=== PATIENT | female | born 1990 | race American Indian/Alaskan Native ===

== ENCOUNTER 2017-06-17 12:06 | Day surgery (SDC) | payer OTHER ==
[~2017-06-17 12:06] MED LIST: WATER FOR IRRIG STERILE IR ONE
[2017-06-17] MEDS ORDERED: ZOFRAN IV PRN (12:48)
[2017-06-17] MEDS ORDERED: PERCOCET 5/325 PO PRN (12:48)
[2017-06-17] MEDS ORDERED: DILAUDID IV PRN (12:48)
--- NOTE | 2017-06-17 12:48 | Anesthesia Consultation ---
Anesthesia Consult and Med Hx Date of service: 06/17/17 - Airway Anesthetic Teeth Evaluation: Good ROM Head & Neck: Adequate Mental/Hyoid Distance: Adequate Mallampati Class: Class II Intubation Access Assessment: Good - Pulmonary Exam CTA: Yes - Cardiac Exam Cardiac Exam: RRR Anesthetic Concerns: Peoplesoft Hcm Consultant tooth in rear, temporary crown - Pulmonary Hx Smoking: No Hx Asthma: Yes ( CHILD ONLY) SOB: No Hx Sleep Apnea: No (NAN PRE SCREEN NEGATIVE) - Cardiovascular System Hx Hypertension: No - Central Nervous System Hx Psychiatric Problems: No (DENIES) - Gastrointestinal Hx Gastroesophageal Reflux Disease: Yes (Diet related) - Endocrine Hx Renal Disease: No Hx Non-Insulin Dependent Diabetes: No - Hematic Hx Anemia: Yes ( CHILD ONLY) Hx Sickle Cell Disease: No - Other Systems Hx Alcohol Use: Yes (OCCASIONAL ) Hx Substance Use: Yes (LAST USE 1 WEEK AGO) Hx Cancer: No Hx Obesity: No
--- NOTE | 2017-06-17 12:48 | Anesthesia Day of Surgery ---
Anesthesia Day of Surgery - Day of Surgery Patient Examined: Yes Patient H&P Reviewed: Yes Patient is NPO: Yes
[2017-06-17] MEDS ORDERED: ANCEF/STERILE WATER 2 GM/20 ML IV NR (13:00)
[2017-06-17] MEDS ORDERED: VERSED IV NR (13:00)
[2017-06-17] MEDS ORDERED: LACTATED RINGERS 1,000 ML IV SCH (13:00)
[2017-06-17] MEDS ORDERED: PEPCID PO NR (13:00)
[2017-06-17] MEDS ORDERED: NACL BACTERIOSTATIC INFILTRATI ONE (13:15)
[2017-06-17] MEDS ORDERED: DILAUDID ONE ×2 (14:07→15:06)
[2017-06-17] MEDS ORDERED: DIPRIVAN 10 MG/ML IV ONE ×2 (14:07→14:57)
[2017-06-17] MEDS ORDERED: XYLOCAINE MPF 2% ONE (14:08)
[2017-06-17] MEDS ORDERED: WATER FOR IRRIG STERILE IR ONE (14:43)
[2017-06-17] MEDS ORDERED: DECADRON ONE (14:55)
[2017-06-17] MEDS ORDERED: ZOFRAN ONE (14:55)
[2017-06-17] MEDS ORDERED: VERSED ONE (15:03)
[2017-06-17] MEDS ORDERED: BREVIBLOC IV ONE (15:12)
--- NOTE | 2017-06-17 15:16 | Short Stay Summary ---
Short Stay Documentation Date of service: 06/17/17 - History H&P: obtained from office - Allergies and Medications Current Medications: Allergies No Known Allergies Allergy (Verified 05/28/17 18:07) Home Medications Medication Instructions Recorded Confirmed Last Taken Type Ibuprofen [Motrin] 800 mg PO Q8HR PRN 05/28/17 06/17/17 1 Month Ago History Multivit-Min/FA/Lycopen/Lutein 1 each PO DAILY 05/28/17 06/17/17 1 Month Ago History [Centrum Silver Tablet] oxyCODONE /ACETAMINOPHEN [Percocet 1 tab PO PRN PRN 05/28/17 06/17/17 2 Weeks Ago History 5/325 mg] Active Medications Cefazolin Sodium (Ancef/Sterile Water 2 Gm/20 Ml) 2 gm IV PREOP NR Stop: 06/17/17 23:59 Famotidine (Pepcid) 20 mg PO PREOP NR Stop: 06/17/17 23:59 Last Admin: 06/17/17 13:16 Dose: 20 mg Hydromorphone HCl (Dilaudid) 0.5 mg IV Q10MIN PRN PRN Reason: Pain , Severe (7-10) Stop: 06/20/17 12:49 Lactated Ringer's (Lactated Ringers) 1,000 mls @ 100 mls/hr IV DIRECT BRENDON Last Admin: 06/17/17 13:25 Dose: 100 mls/hr Midazolam HCl (Versed) 2 mg IV PREOP NR Stop: 06/17/17 23:59 Last Admin: 06/17/17 13:59 Dose: 2 mg - Brief post op/procedure progress note Date of procedure: 06/17/17 Pre-op diagnosis: hematuria Post-op diagnosis: same Procedure: cysto, baldder bx Anesthesia: GETA Surgeon: BON RYAN Estimated blood loss: minimal Pathology: list (bladder) Specimen disposition: to lab Condition: stable - Hospital course Hospital course: cipro & norco - Disposition Condition at discharge: Stable Disposition: DC-01 TO HOME OR SELFCARE Short Stay Discharge Plan Follow up with: PRIMARY CARE, [Primary Care Provider] - 7 Days
[2017-06-17] MEDS ORDERED: S2 RACEPINEPHRINE 2.25% IH ONE ×2 (15:31→16:15)
--- NOTE | 2017-06-17 16:13 | Post Anesthesia Evaluation ---
- Post Anesthesia Evaluation Patient Participated: Yes Airway Patent: Yes Stable Respiratory Function: Yes Temp > 96.8F: Yes Pain Manageable: Yes Adequeate Hydration: Yes Anesthesia Complications: No
--- NOTE | 2017-06-17 16:46 | Fluoroscopy Report ---
Retrograde urogram. History: Hematuria/interstitial cystitis. Findings: The left pelvic calyceal system and ureter appear normal. The right collecting system and ureter are not opacified. Bladder biopsies were performed during this procedure by Dr. Kwon.
[2017-06-17 17:21] VITALS: BP 112/73
[2017-06-17] MEDS ORDERED: NORCO 5/325 PO SCH (17:26)
--- NOTE | 2017-06-17 19:50 | Operative Report ---
PREOPERATIVE DIAGNOSES: Hematuria, history of interstitial cystitis. POSTOPERATIVE DIAGNOSES: Hematuria, history of interstitial cystitis, bladder lesion, right sidewall. PROCEDURE: Cystoscopy, left retrograde pyelogram, biopsy of right sidewall of bladder lesion and fulguration, hydrodistention (200 mL). SURGEON: Dg Kwon MD ANESTHESIA: General. ESTIMATED BLOOD LOSS: Minimal. FLUIDS: Crystalloid. COMPLICATIONS: No complications. INDICATIONS: This patient is a 27-year-old female seen by Dr. Prado in the office for hematuria with history of interstitial cystitis. CT of the abdomen and pelvis was unremarkable except for small ovarian cyst. She presents now for surgical intervention. Risks, benefits, and complications were explained. DESCRIPTION OF PROCEDURE: The patient was taken to the operative suite, placed in a supine position. After adequate general anesthesia, placed in a dorsal lithotomy position, prepped and draped in a sterile fashion. Pancystourethroscopy was performed with a 22 Turkmen Storz cystoscope. No urethral abnormalities; however, obvious diffuse edema and erythema of the bladder, small lesion on the right side. Left retrograde pyelogram was obtained with an 8 Turkmen Kelvin catheter and 8 mL of contrast. No filling defects or obstruction. The right ureteral orifices could not be appreciated due to the edema. She was also noted to have a small hemorrhagic lesion on the right side. This was biopsied and fulgurated, sent for routine pathologic evaluation. Hydrodistention, bladder capacity of 200 mL. Bladder was drained. She was extubated and taken to recovery room. Also, obtain a urine culture, taken to recovery room in stable condition. She will go home on [place] and Cipro. JOB# [id number] [facility]
== END 2017-06-17 17:42 | disposition home or self-care (01) ==
LOC: OR 12:06
PROVIDERS: ATTEND Urology
DX: N30.21 Other chronic cystitis with hematuria (principal); N30.01 Acute cystitis with hematuria; N32.89 Other specified disorders of bladder; N83.209 Unspecified ovarian cyst, unspecified side; J45.909 Unspecified asthma, uncomplicated; K21.9 Gastro-esophageal reflux disease without esophagitis; D64.9 Anemia, unspecified; F19.90 Other psychoactive substance use, unspecified, uncomplicated; Z72.89 Other problems related to lifestyle
CPT/HCPCS: 52204; 52260; 74420; 81025; 87086; 88305; A4217; C1758; J0690; J1100; J1170; J2250; J2405; J2704; J7120; Q9967